=== PATIENT | female | born 1930 | race Hispanic/Latino ===

== ENCOUNTER 2018-11-24 17:00 | Outpatient (CLI) | payer MEDICARE, BC | END 2018-11-24 17:01 | disposition home or self-care (01) | LOC: RAD 17:00 ==

== ENCOUNTER 2018-12-06 15:18 | Inpatient (IN) | payer MEDICARE, BC ==
[2018-12-06 15:19] VITALS: BMI 31.8
[2018-12-06 15:52] LABS: HEMOGLOBIN 10.9 g/dL (12.0-16.0); MEAN CELL VOLUME 93.1 fl (80.0-105.0); MEAN CORPUSCULAR HEMOGLOBIN 30.2 pg (25.0-35.0); MEAN CORPUSCULAR HGB CONC 32.4 g/dl (31.0-37.0); MEAN PLATELET VOLUME 10.3 fl (7.0-11.0); RBC 3.61 {null, 10^6/uL} (3.5-6.1); RED CELL DISTRIBUTION WIDTH 14.2 % (11.5-14.5); WHITE BLOOD COUNT 7.3 {null, 10^3/uL} (4.5-11.0)
[2018-12-06 15:59] LABS: INR 1.35
[2018-12-06 16:04] LABS: ALB/GLOB RATIO 1.3 (1.1-1.8); ALBUMIN 3.8 g/dL (3.0-4.8); ALT/SGPT 16 U/L (7-56); AST/SGOT 19 U/L (14-36); BLOOD UREA NITROGEN 17 mg/dL (7-21); CALCIUM 8.8 mg/dL (8.4-10.5); GFR NON-AFRICAN AMERICAN > 60
--- NOTE | 2018-12-06 16:05 | ED PDOC ---
Arrival/HPI <Bolivar Souza - Last Filed: 12/06/18 20:16> - General Historian: Patient, Family - History of Present Illness Narrative History of Present Illness (Text): 12/06/18 16:23 88 y/o female with PMH of CVA, TIA, severe PVD, dementia presents to the ED from home accompanied by her son with diarrhea and dizziness for one day. Patient is a poor historian because her dementia and son is providing the history. He reports that the patient was in her usual state of health till today when she felt lightheadedness upon going for a walk. Patient reports diarrhea for one day and poor oral intake but drinks many cups of coffee daily. She denied urinary symptoms, nausea, vomiting, fever, chills, muscle weakness, chest pain, SOB, palpitations, cough. Patient is following up with her machine zipper trimmer for her advanced PVD and is on aspirin. PMD Dr Olmstead machine zipper trimmer: Dr Chahal Time/Duration: 4-6 hours Symptom Course: Resolved Context: Home <Unruly Sue - Last Filed: 12/07/18 13:09> - General Chief Complaint: Weakness/Neurological Deficit Time Seen by Provider: 12/06/18 15:39 Past Medical History - Provider Review Nursing Documentation Reviewed: Yes - Neurological HX Cerebrovascular Accident: Yes (Slurred speech) Hx Dementia: Yes - Psychiatric Hx Substance Use: No - Surgical History Hx Joint Replacement: Yes (Knee replacement) <Unruly Sue - Last Filed: 12/07/18 13:09> Family/Social History Family/Social History: No Known Family HX Smoking Status: Former Smoker Hx Alcohol Use: No Hx Substance Use: No <Unruly Sue - Last Filed: 12/07/18 13:09> Allergies/Home Meds <Bolivar Souza - Last Filed: 12/06/18 20:16> <Unruly Sue - Last Filed: 12/07/18 13:09> Allergies/Adverse Reactions: Allergies No Known Allergies Allergy (Verified 12/06/18 15:26) Home Medications: Home Meds Medication Instructions Recorded Confirmed No Known Home Med 12/06/18 12/06/18 Review of Systems - Physician Review All systems were reviewed & negative as marked: Yes - Review of Systems Constitutional: Normal Eyes: Normal ENT: Normal Respiratory: Normal. absent: SOB, Cough, Sputum Cardiovascular: Normal. absent: Chest Pain, Palpitations Gastrointestinal: Diarrhea. absent: Nausea, Vomiting, Appetite Changes, Hematochezia, Hematemesis Genitourinary Female: Normal. absent: Dysuria, Frequency, Hematuria Musculoskeletal: Normal Skin: Normal Neurological: Normal. absent: Headache, Dizziness Endocrine: Normal Hemo/Lymphatic: Normal Psychiatric: Normal <Unruly Sue - Last Filed: 12/07/18 13:09> Physical Exam Vital Signs Temp Pulse Resp BP Pulse Ox 12/06/18 18:40 100 F H 85 18 99 12/06/18 18:39 124/59 L 12/06/18 16:19 100.4 F H 83 18 110/59 L 96 <Bolivar Souza - Last Filed: 12/06/18 20:16> Vital Signs Reviewed: Yes Temperature: Febrile Blood Pressure: Normal Pulse: Regular Respiratory Rate: Normal Appearance: Positive for: Well-Appearing, Non-Toxic, Comfortable Pain Distress: None Mental Status: Positive for: Alert and Oriented X 3 - Systems Exam Head: Present: Atraumatic, Normocephalic Pupils: Present: PERRL Extroacular Muscles: Present: EOMI Conjunctiva: Present: Normal Mouth: Present: Dry Pharnyx: Present: Normal Nose (External): Present: Atraumatic Nose (Internal): Present: Normal Inspection Neck: Present: Normal Range of Motion. No: Meningeal Signs, JVD Respiratory/Chest: Present: Clear to Auscultation, Good Air Exchange. No: Respiratory Distress, Wheezes, Rhonchi Cardiovascular: Present: Regular Rate and Rhythm, Normal S1, S2 Abdomen: Present: Normal Bowel Sounds. No: Tenderness, Distention Back: Present: Normal Inspection. No: CVA Tenderness Upper Extremity: Present: Normal Inspection. No: Cyanosis, Edema Lower Extremity: Present: Normal ROM, Erythema, Other. No: CALF TENDERNESS, NORMAL PULSES Neurological: Present: GCS=15, CN II-XII Intact, Other (slurred speech (baseline)) Skin: Present: Warm, Dry, Other (b/l lower leg skin changes.) Psychiatric: Present: Alert, Oriented x 3 <Unruly Sue - Last Filed: 12/07/18 13:09> Medical Decision Making ED Course and Treatment: 03/02/19 20:16 patient was seen for acute diarrhea, incidentally found to have a fever. CT was done to rule out colitis in light of acute diarrhea. CXR is suggestive of a basilar pneumonia and was empirically started on doxy. Stools studies sent admit accepted by dr. chakraborty, covering for dr. gupta - Lab Interpretations Lab Results: pO2 34 mm/Hg (30-55) 12/06/18 17:50 VBG pH 7.41 (7.32-7.43) 12/06/18 17:50 VBG pCO2 45.0 (40-60) 12/06/18 17:50 VBG HCO3 28.5 mmol/l (21-28) H 12/06/18 17:50 VBG Total CO2 29.9 mmol.L (22-28) H 12/06/18 17:50 VBG O2 Sat (Calc) 72.0 % (40-65) H 12/06/18 17:50 VBG Base Excess 3.2 mmol/L (0.0-2.0) H 12/06/18 17:50 VBG Potassium 3.3 mmol/L (3.6-5.2) L 12/06/18 17:50 Sodium 140.0 mmol/L (132-148) 12/06/18 17:50 Chloride 108.0 mmol/L (98-107) H 12/06/18 17:50 Glucose 125 mg/dl (65-105) H 12/06/18 17:50 Lactate 1.0 mmol/L (0.7-2.1) 12/06/18 17:50 FiO2 21.0 % 12/06/18 17:50 PT 15.0 SECONDS (9.4-12.5) H 12/06/18 15:47 INR 1.35 12/06/18 15:47 Troponin I < 0.01 ng/mL 12/06/18 16:00 Total Bilirubin 0.7 mg/dL (0.2-1.3) 12/06/18 15:47 AST 19 U/L (14-36) 12/06/18 15:47 ALT 16 U/L (7-56) 12/06/18 15:47 Alkaline Phosphatase 61 U/L (38-126) 12/06/18 15:47 Total Protein 6.7 g/dL (5.8-8.3) 12/06/18 15:47 Albumin 3.8 g/dL (3.0-4.8) 12/06/18 15:47 Globulin 2.9 gm/dL 12/06/18 15:47 Albumin/Globulin Ratio 1.3 (1.1-1.8) 12/06/18 15:47 Urine Color Yellow (YELLOW) 12/06/18 16:51 Urine Appearance Clear (CLEAR) 12/06/18 16:51 Urine pH 5.5 (4.7-8.0) 12/06/18 16:51 Ur Specific Myra >= 1.030 (1.005-1.035) 12/06/18 16:51 Urine Protein Trace mg/dL (<30 mg/dL) H 12/06/18 16:51 Urine Glucose (UA) Negative mg/dL (NEGATIVE) 12/06/18 16:51 Urine Ketones Negative mg/dL (NEGATIVE) 12/06/18 16:51 Urine Blood Negative (NEGATIVE) 12/06/18 16:51 Urine Nitrate Negative (NEGATIVE) 12/06/18 16:51 Urine Bilirubin Negative (NEGATIVE) 12/06/18 16:51 Urine Urobilinogen 1.0 E.U./dL (<1 E.U./dL) H 12/06/18 16:51 Ur Leukocyte Esterase Negative Vishal/uL (NEGATIVE) 12/06/18 16:51 Urine RBC 0 - 2 /hpf (0-2) 12/06/18 16:51 Urine WBC None /hpf (0-6) 12/06/18 16:51 Ur Epithelial Cells None /hpf (0-5) 12/06/18 16:51 Urine Other Mucus /hpf 12/06/18 16:51 - RAD Interpretation Narrative RAD Interpretations (Text): EXAM: CT Abdomen and Pelvis with IV contrast Electronically signed on Dec 06, 2018 7:29:27 PM EST by: Taco Nuno M.D., IMPRESSION: Post operative changes with pneumobilia. No bowel obstruction identified. Small heterogeneous uterus. Advanced hypertrophic and degenerative changes lumbar spine with grade 1 anterolisthesis at the L4-L5 and L5-S1 levels. Advanced atherosclerotic changes Radiology Orders: 12/06/18 16:07 CHEST PORTABLE [RAD] Stat 12/06/18 16:14 ABDOMEN & PELVIS [ABD & PELVIS IV CONTRAST ONLY] [CT] Stat 12/06/18 19:24 CHEST PORTABLE [RAD] Stat Learning Support Specialist: Radiologist - Medication Orders Current Medication Orders: Sodium Chloride (Sodium Chloride 0.9%) 1,000 mls @ 100 mls/hr IV .Q10H [facility] Last Admin: 12/06/18 16:49 Dose: 100 mls/hr eMAR Start Stop Document 12/06/18 16:49 GMI (Rec: 12/06/18 16:[address] [facility] [id number]) Intravenous Solution Start Date 12/06/18 Start Time 16:49 Discontinued Medications Potassium Chloride (Potassium Chloride Oral Soln) 40 meq PO STAT STA Stop: 12/06/18 17:43 Last Admin: 12/06/18 18:02 Dose: 40 meq <Bolivar Souza - Last Filed: 12/06/18 20:16> - Lab Interpretations Lab Results: PT 15.0 SECONDS (9.4-12.5) H 12/06/18 15:47 INR 1.35 12/06/18 15:47 I have reviewed the lab results: Yes Interpretation: Abnormal lab values (K 3.2, KCL 40 PO given) - EKG Interpretation Interpreted by ED Physician: Yes (sinus rhythm @79 bpm with PVC ) Comparison: No previous EKG avail. <Unruly Sue - Last Filed: 12/07/18 13:09> Disposition/Present on Arrival - Present on Arrival Any Indicators Present on Arrival: No History of DVT/PE: Yes - Disposition Have Diagnosis and Disposition been Completed?: Yes Disposition Time: 20:16 Patient Plan: Admission <Bolivar Souza - Last Filed: 12/06/18 20:16> - Present on Arrival Any Indicators Present on Arrival: No History of DVT/PE: Yes History of Uncontrolled Diabetes: No Urinary Catheter: No History of Decub. Ulcer: No History Surgical Site Infection Following: None - Disposition Have Diagnosis and Disposition been Completed?: Yes Patient Plan: Admission <Unruly Sue - Last Filed: 12/07/18 13:09> - Disposition Diagnosis: Diarrhea Disposition: HOSPITALIZED Patient Problems: Current Active Problems Problem Status Onset Diarrhea Acute Condition: STABLE
[2018-12-06] MEDS ORDERED: Iohexol 350 MG/100 ML VIAL ONE (16:43)
[2018-12-06] MEDS: Sodium Chloride 0.9% 1,000 ML IV SCH (16:49)
[2018-12-06 16:54] LABS: TROPONIN I < 0.01 ng/mL
[2018-12-06 16:55] LABS: PH,URINE 5.5 (4.7-8.0); URINE BILIRUBIN NEGATIVE (NEGATIVE); URINE BLOOD NEGATIVE (NEGATIVE); URINE GLUCOSE (UA) NEGATIVE (NEGATIVE); URINE LEUKOCYTE ESTERASE NEGATIVE Leu/uL (NEGATIVE); URINE PROTEIN TRACE mg/dL (<30 mg/dL)
[2018-12-06 16:56] LABS: URINE APPEARANCE CLEAR (CLEAR); URINE COLOR YELLOW (YELLOW)
[2018-12-06 17:03] LABS: URINE RBC 0 - 2 /hpf (0-2)
[2018-12-06] MEDS ORDERED: Potassium Chloride 40 mEq/30 ml LIQ UD PO STA (17:42)
--- NOTE | 2018-12-06 17:42 | RAD ---
HISTORY: h/o heart disease COMPARISON: None available. TECHNIQUE: Chest, one view. FINDINGS: Examination limited by habitus. LUNGS: Mild left basilar atelectasis/infiltrate. Please note that chest x-ray has limited sensitivity for the detection of pulmonary masses. PLEURA: No significant pleural effusion identified. No definite pneumothorax . CARDIOVASCULAR: Cardiomegaly. Atherosclerotic calcifications of the aorta. OSSEOUS STRUCTURES: Degenerative changes. VISUALIZED UPPER ABDOMEN: Elevation of the right hemidiaphragm. OTHER FINDINGS: None. IMPRESSION: Cardiomegaly. Mild left basilar atelectasis/infiltrate.
[2018-12-06 18:02] LABS: VENOUS BLOOD GAS BASE EXCESS 3.2 mmol/L (0.0-2.0); VENOUS BLOOD GAS PO2 34 mm/Hg (30-55); VENOUS BLOOD PH 7.41 (7.32-7.43)
[2018-12-07] MEDS: Sodium Chloride 0.9% 1,000 ML IV SCH (04:20)
--- NOTE | 2018-12-07 15:28 | CT ---
Date of service: 12/07/2018 PROCEDURE: CT HEAD WITHOUT CONTRAST. HISTORY: altered mental status COMPARISON: None available. TECHNIQUE: Axial computed tomography images were obtained through the head/brain without intravenous contrast. Radiation dose: Total exam DLP = 801.78 mGy-cm. This CT exam was performed using one or more of the following dose reduction techniques: Automated exposure control, adjustment of the mA and/or kV according to patient size, and/or use of iterative reconstruction technique. FINDINGS: HEMORRHAGE: No intracranial hemorrhage. BRAIN: Diffuse atrophy with prominence of the ventricles and sulci noted. No mass effect or edema. Intracranial atherosclerosis. Scattered periventricular and subcortical white matter hypodensities, which are nonspecific, but often seen with chronic microvascular ischemic disease. Please note that MRI with diffusion imaging is more sensitive in the detection of acute ischemic event. VENTRICLES: No hydrocephalus. CALVARIUM: Unremarkable. PARANASAL SINUSES: Unremarkable as visualized. No significant inflammatory changes. MASTOID AIR CELLS: Unremarkable as visualized. No inflammatory changes. OTHER FINDINGS: None. IMPRESSION: Generalized atrophy. Nonspecific white matter changes.
--- NOTE | 2018-12-07 15:45 | CT ---
Date of service: 12/06/2018 PROCEDURE: CT Abdomen and Pelvis with contrast HISTORY: diarrhea COMPARISON: None available. TECHNIQUE: Contrast dose: 100 mL Omnipaque 350 IV Radiation dose: Total exam DLP = 864.73 mGy-cm. This CT exam was performed using one or more of the following dose reduction techniques: Automated exposure control, adjustment of the mA and/or kV according to patient size, and/or use of iterative reconstruction technique. FINDINGS: LOWER THORAX: Bibasilar atelectasis/infiltrates. No visible pleural effusion or pneumothorax. LIVER: Pneumobilia. GALLBLADDER AND BILE DUCTS: Cholecystectomy. PANCREAS: Fatty atrophy of the pancreas. SPLEEN: Unremarkable. ADRENALS: Bilateral adrenal gland hypertrophy. KIDNEYS AND URETERS: The kidneys enhance symmetrically. No hydronephrosis or obstructing calculus identified. VASCULATURE: No aortic aneurysm. Atherosclerotic calcifications of the aorta. BOWEL: Stomach is nondistended. Lack of oral contrast limits evaluation for bowel pathology. Bowel loops appear within normal limits of caliber without evidence of obstruction. APPENDIX: The appendix appears within normal limits of caliber. No secondary signs of acute appendicitis. PERITONEUM: No significant free fluid. No definite free air. LYMPH NODES: No bulky adenopathy identified. BLADDER: Unremarkable. REPRODUCTIVE: Heterogeneous uterus with coarse calcifications consistent with fibroids. BONES: Multilevel degenerative changes of the spine including vacuum disc phenomenon and grade 1 anterolisthesis of L4 on L5 and L5 on S1. OTHER FINDINGS: Catheter noted inferior to the urinary bladder, a does not enter the urinary bladder; correlate clinically. IMPRESSION: Catheter noted inferior to the urinary bladder but does not enter the bladder; correlate clinically. Heterogeneous uterus with coarse calcifications consistent with degenerating fibroids. Bilateral adrenal gland hypertrophy. Pneumobilia in the setting of cholecystectomy. Fatty atrophy the pancreas. Bibasilar atelectasis/infiltrates. Preliminary impression was provided by [employer]. Case discussed with the patient's RN Clara on 12/07/18 at 3:40 p.m.
--- NOTE | 2018-12-07 16:38 | CARD ---
APPROVED REPORT Date of service: 12/06/2018 EKG Measurement Heart [id number] <Conclusion> Sinus rhythm with 1st degree AV block with premature supraventricular complexes Left bundle branch block Abnormal ECG
[2018-12-07 17:31] LABS: HDL CHOLESTEROL 40 mg/dL (29-60)
[2018-12-07 17:42] LABS: LDL CHOLESTEROL 81 mg/dL (0-129)
--- NOTE | 2018-12-07 19:24 | CON ---
DATE OF CONSULTATION: 12/07/2018 REQUESTING PHYSICIAN: Anne-Marie Faria MD REASON FOR CONSULTATION: Abnormal electrocardiogram. HISTORY: This is an 88-year-old woman with a history of cerebrovascular disease, peripheral vascular disease and dementia, who was brought to the emergency room by her son with complaints of dizziness and diarrhea. She was noted to have a left bundle-branch block on electrocardiogram and evaluation was requested. She is seen lying in bed on telemetry. She answers questions in an unintelligible fashion. She cannot provide the further history. The rest of the history is obtained via the chart. PAST HISTORY: Notable for prior cerebrovascular accident with dysphasia, dementia and prior knee replacement. FAMILY HISTORY: Both parents , cause unknown. SOCIAL HISTORY: She is a former smoker. She does not drink. She lives at home with her family. MEDICATIONS AT HOME: None. ALLERGIES: NONE. REVIEW OF SYSTEMS: A 10-point review of systems was basically unobtainable. PHYSICAL EXAMINATION: GENERAL: She is a very elderly woman who is comfortable at rest. VITAL SIGNS: Blood pressure is 150/76 with a pulse of 70, in sinus rhythm. Respirations are 16. She is afebrile. HEENT: No JVD. CHEST: Few scattered rhonchi heard. HEART: PMI displaced laterally with a systolic murmur present at the left sternal border and a paradoxical splitting of the second sound. ABDOMEN: Soft, nontender, normoactive bowel sounds. EXTREMITIES: No edema. SKIN: Warm and dry. PSYCHIATRIC: Unable to fully assess. NEUROLOGIC: Not oriented to person, place or time. Moving all four extremities. DIAGNOSTIC DATA: White count 7.3, hemoglobin and hematocrit 10.9 and 33.6 with a platelet count of 176,000. PT/INR 15 and 1.35. Venous blood gas: pH 7.41, pCO2 of 45, pO2 of 34. Potassium 3.2, which has been replaced. BUN and creatinine are 17 and 0.7. Troponin is not detected. Electrocardiogram reveals wandering baseline with sinus rhythm, first-degree AV block and left bundle-branch block pattern. Chest x-ray reveals an increased cardiac silhouette. Atelectasis is noted on the left. CT of the abdomen and pelvis was relatively unremarkable. IMPRESSION: 1. Left bundle-branch block, unclear if this is old or new, appears asymptomatic. No clear evidence of cardiac ischemia at this time. 2. Significant dementia. 3. Diarrhea and weakness, likely due to some degree of intravascular volume depletion. 4. Hypokalemia. 5. Rest of the problems as noted. RECOMMENDATIONS: Conservative management is advised. No further cardiac enzymes need to be drawn at this time. Potassium placement should be provided. Cautious IV hydration can continue for now. I would be happy to follow along as needed. However, a very conservative management appears most reasonable at this time. Thank you for this consultation. Wallace Goncalves MD
[2018-12-07] MEDS ORDERED: guaiFENesin DM 100 mg-10 mg/5 ml UD PO PRN (19:30)
[2018-12-08] MEDS ORDERED: Potassium Chloride 40 mEq/30 ml LIQ UD PO STA (08:25)
--- NOTE | 2018-12-08 08:54 | HP ---
DATE OF EXAM: 12/07/2018 HISTORY OF PRESENT ILLNESS: The patient is 88-year-old, patient of Dr. Olmstead, was brought to emergency room. Patient is not a very good historian. I took history from her daughter Vashti Rhoades. She states patient, her mom, lives with son and yesterday, when the son took her out to have a little walk, when as soon as she reached the front door, she wanted to come back and she laid down on the bed and then she felt very frustrated and she was having difficulty expressing herself and she felt very anxious and frustrated because she could not express herself, but she wanted to say and she seemed very agitated and her behavior was not herself, so family decided to bring her to emergency room to get further help. According to the daughter, she had episode of diarrhea yesterday also, denies taking any recent antibiotic for any other reason. She felt dizzy and lightheaded. Recently, she has not been eating that well according to daughter, if she drinks one cup of coffee, she states this is enough and she has been told multiple times that drinking too much coffee might give her dehydration, but according to daughter, mom seemed to be very stubborn and she wants to do whatever she wants to do. So for those reasons, they brought her to emergency room for further evaluation. She was recently evaluated by Dr. Scottie Lim for her peripheral vascular disease and it was advised to have some intervention done, but Dr. uClver told her not to do, which is given her age and worsening dementia. PAST MEDICAL HISTORY: Otherwise significant for: 1. Hypertension. 2. Hyperlipidemia. 3. Peripheral vascular disease. 4. Dementia. ALLERGIC: SHE IS NOT ALLERGIC TO ANY MEDICATION. MEDICATION AT HOME: She take statins. SOCIAL HISTORY: She used to be a smoker in the past, but quit couple of years ago. PHYSICAL EXAMINATION GENERAL: She is awake and alert, but agitated and she cannot express herself. She gets stuck on certain words and keep on repeating that. Otherwise, she has symmetrical face, nonicteric sclerae, pink conjunctivae. VITAL SIGNS: She is afebrile, pulse 63, respirations 20, blood pressure 159/76. LUNGS: Bilateral fair airflow. No rhonchi or crackle. HEART: S1, S2 audible. ABDOMEN: Soft, nontender, no rebound, no guarding. NEUROLOGIC: Patient is awake and alert, but confused and disoriented. LABORATORY EXAMINATION: WBC 7.3, hemoglobin 10.9, hematocrit 33.6, platelet 176. PT 15, INR 1.02. Chemistry, sodium 140, potassium 3.2, chloride 108, CO2 of 26, BUN 17, creatine 0.7, blood sugar 137, magnesium 2.4. Urinalysis is unremarkable. CT scan of the head is done that shows generalized atrophy and nonspecific white matter changes. CT of the abdomen and pelvis was done that shows heterogeneous uterus with gross calcification, bibasilar atelectasis and fatty atrophy of pancreas. ASSESSMENT : 1. Altered mental status. 2. Worsening dementia. 3. Expressive dysphasia. 4. History of hypertension. 5. Peripheral vascular disease. PLAN: Currently, the patient is on statin. Potassium will be supplemented. I will order for carotid Doppler. CT scan has been ordered and it seemed to be unremarkable. Stool for C. diff is pending. I will request physical therapy evaluation. Neurology and Cardiology evaluations are pending. Anne-Marie Faria MD
[2018-12-08 11:40] LABS: BASO # 0.01 {null, K/mm3} (0.0-2.0); BASO % 0.2 % (0.0-3.0); EOS # 0.1 (0.0-0.7); EOS % 1.6 % (1.5-5.0); HEMOGLOBIN 12.6 g/dL (12.0-16.0); LYMPH # 1.7 (1.2-3.4); LYMPH % 25.9 % (22.0-35.0); MEAN CELL VOLUME 93.1 fl (80.0-105.0); MEAN CORPUSCULAR HGB CONC 32.2 g/dl (31.0-37.0); MEAN PLATELET VOLUME 10.3 fl (7.0-11.0); MONO # 0.6 (0.1-0.6); MONO % 9.9 % (1.0-6.0); RBC 4.2 {null, 10^6/uL} (3.5-6.1); RED CELL DISTRIBUTION WIDTH 14.4 % (11.5-14.5); WHITE BLOOD COUNT 6.4 {null, 10^3/uL} (4.5-11.0)
[2018-12-08 12:06] LABS: FREE T4 0.95 ng/dL (0.78-2.19)
[2018-12-08 12:07] LABS: ALB/GLOB RATIO 1.2 (1.1-1.8); ALBUMIN 4.3 g/dL (3.0-4.8); ALT/SGPT 16 U/L (7-56); AST/SGOT 18 U/L (14-36); BLOOD UREA NITROGEN 15 mg/dL (7-21); CALCIUM 9.3 mg/dL (8.4-10.5); GFR NON-AFRICAN AMERICAN > 60
--- NOTE | 2018-12-08 13:23 | CP.PCM.HP ---
<Feliciano Engle - Last Filed: 12/08/18 13:18> History of Present Illness - History of Present Illness History of Present Illness: H&P for Dr Kemp: 88-year-old female with past medical history of CVA, TIA, severe PVD, dementia presents following her being dizzy, and episode of being unresponsive. As per the patient's daughter Tracy, the patient has been increasingly lethargic past week. Then prior to arrival patient had an episode of being very dizzy and the patient went to bed. Her son came to wake her up and she was unresponsive at the time. They became concerned and called 911 and brought the patient to the emergency room. In route to the emergency room patient did have one episode of diarrhea. The patient does admit to poor appetite. She denies any other complaints. 12 point ROS limited due to dementia PMH: As above PSH: Cholecystectomy, bilateral knee replacement, ankle surgery, , varicose vein removal Allergies: No known allergies Medications: Denies SH: Denies any smoking, drinking, or drugs FH: Denies Present on Admission - Present on Admission Any Indicators Present on Admission: No Review of Systems - Review of Systems All systems: reviewed and no additional remarkable complaints except Past Patient History - Past Social History Smoking Status: Former Smoker - NEUROLOGICAL HX Cerebrovascular Accident: Yes (expressive aphasia) - MUSCULOSKELETAL/RHEUMATOLOGICAL Hx Falls: No - PSYCHIATRIC Hx Substance Use: No - SURGICAL HISTORY Hx Joint Replacement: Yes (Knee replacement) Meds Allergies/Adverse Reactions: Allergies Allergy/AdvReac Type Severity Reaction Status Date / Time No Known Allergies Allergy Verified 12/06/18 15:26 Physical Exam - Constitutional Appears: No Acute Distress - Head Exam Head Exam: ATRAUMATIC, NORMOCEPHALIC - Eye Exam Eye Exam: EOMI - ENT Exam ENT Exam: Mucous Membranes Moist - Respiratory Exam Respiratory Exam: Clear to Auscultation Bilateral. absent: Rales, Rhonchi - Cardiovascular Exam Cardiovascular Exam: REGULAR RHYTHM, RRR, +S1, +S2 - GI/Abdominal Exam GI & Abdominal Exam: Normal Bowel Sounds, Soft. absent: Tenderness - Extremities Exam Extremities exam: Negative for: calf tenderness, pedal edema - Neurological Exam Neurological exam: Alert, CN II-XII Intact, Oriented x3 - Psychiatric Exam Psychiatric exam: Normal Mood - Skin Skin Exam: Dry, Intact, Warm Results - Vital Signs Recent Vital Signs: Last Vital Signs Temp 98.1 F 12/08/18 08:53 Pulse 63 12/08/18 10:00 Resp 20 12/08/18 08:53 BP 117/63 12/08/18 08:53 Pulse Ox 95 12/08/18 08:53 - Labs Result Diagrams: 12/08/18 11:30 12/08/18 11:30 Labs: Laboratory Results - last 24 hr 12/07/18 12/08/18 12/08/18 17:21 11:30 11:30 WBC 6.4 RBC 4.20 Hgb 12.6 Hct 39.1 MCV 93.1 MCH 30.0 MCHC 32.2 RDW 14.4 Plt Count 215 MPV 10.3 Neut % (Auto) 62.4 Lymph % (Auto) 25.9 Mcintosh % (Auto) 9.9 H Eos % (Auto) 1.6 Baso % (Auto) 0.2 Lymph # (Auto) 1.7 Mcintosh # (Auto) 0.6 Eos # (Auto) 0.1 Baso # (Auto) 0.01 Absolute Neuts (auto) 3.97 Sodium 141 Potassium 4.2 Chloride 106 Carbon Dioxide 28 Anion Gap 11 BUN 15 Creatinine 0.6 L Est GFR ( Amer) > 60 Est GFR (Non-Af Amer) > 60 Random Glucose 90 Calcium 9.3 Magnesium 2.4 H Total Bilirubin 0.6 AST 18 ALT 16 Alkaline Phosphatase 66 Total Protein 7.7 Albumin 4.3 Globulin 3.4 Albumin/Globulin Ratio 1.2 Triglycerides 108 Cholesterol 148 LDL Cholesterol Direct 81 HDL Cholesterol 40 Free T4 TSH 3rd Generation 12/08/18 11:30 WBC RBC Hgb Hct MCV MCH MCHC RDW Plt Count MPV Neut % (Auto) Lymph % (Auto) Mcintosh % (Auto) Eos % (Auto) Baso % (Auto) Lymph # (Auto) Mcintosh # (Auto) Eos # (Auto) Baso # (Auto) Absolute Neuts (auto) Sodium Potassium Chloride Carbon Dioxide Anion Gap BUN Creatinine Est GFR ( Amer) Est GFR (Non-Af Amer) Random Glucose Calcium Magnesium Total Bilirubin AST ALT Alkaline Phosphatase Total Protein Albumin Globulin Albumin/Globulin Ratio Triglycerides Cholesterol LDL Cholesterol Direct HDL Cholesterol Free T4 0.95 TSH 3rd Generation 3.73 Assessment & Plan - Assessment and Plan (Free Text) Assessment: 1. Acute diarrhea 2. Hypokalemia 3.2 3. LBBB, likely chronic 4. History of CVA 5. Peripheral vascular disease 6. Dementia, likely Alzheimer's 7. Dizziness, acute Patient's diarrhea has mostly resolved at this time. C. difficile workup has been negative. Follow-up stool workup. For her LBBB cardiology has been consulted and recommended conservative management. For her hypokalemia has been repleted with potassium chloride 40 meq PO x1. For her dizziness and history of dementia neurology was consulted awaiting recommendations. For her history of CVA we will start the patient on aspirin daily. F/u Carotid US. F/u orthostati cs. For her hyperlipidemia continue with Lipitor. CT of the head was neg for any acute abnormality. CT of the abdomen showed urinary catheter likely in the inferior section of the bladderI reached out to the nurse to push the catheter and and make sure that it is functioning properly. I spoke to the patient's daughter Tracy in detail updated her on the current management. Cont with heart healthy diet. Continue with physical therapy. Continue to monitor for any changes. Case and plan was reviewed and discussed with Dr. Kemp. <Ravin Kemp S - Last Filed: 12/08/18 17:12> Results - Vital Signs Recent Vital Signs: Last Vital Signs Temp 98.1 F 12/08/18 08:53 Pulse 63 12/08/18 10:00 Resp 20 12/08/18 08:53 BP 117/63 12/08/18 08:53 Pulse Ox 95 12/08/18 08:53 - Labs Result Diagrams: 12/08/18 11:30 12/08/18 11:30 Labs: Laboratory Results - last 24 hr 12/07/18 12/08/18 12/08/18 17:21 11:30 11:30 WBC 6.4 RBC 4.20 Hgb 12.6 Hct 39.1 MCV 93.1 MCH 30.0 MCHC 32.2 RDW 14.4 Plt Count 215 MPV 10.3 Neut % (Auto) 62.4 Lymph % (Auto) 25.9 Mcintosh % (Auto) 9.9 H Eos % (Auto) 1.6 Baso % (Auto) 0.2 Lymph # (Auto) 1.7 Mcintosh # (Auto) 0.6 Eos # (Auto) 0.1 Baso # (Auto) 0.01 Absolute Neuts (auto) 3.97 Sodium 141 Potassium 4.2 Chloride 106 Carbon Dioxide 28 Anion Gap 11 BUN 15 Creatinine 0.6 L Est GFR ( Amer) > 60 Est GFR (Non-Af Amer) > 60 Random Glucose 90 Hemoglobin A1c Calcium 9.3 Magnesium 2.4 H Total Bilirubin 0.6 AST 18 ALT 16 Alkaline Phosphatase 66 Total Protein 7.7 Albumin 4.3 Globulin 3.4 Albumin/Globulin Ratio 1.2 Triglycerides 108 Cholesterol 148 LDL Cholesterol Direct 81 HDL Cholesterol 40 Free T4 TSH 3rd Generation 12/08/18 12/08/18 11:30 11:30 WBC RBC Hgb Hct MCV MCH MCHC RDW Plt Count MPV Neut % (Auto) Lymph % (Auto) Mcintosh % (Auto) Eos % (Auto) Baso % (Auto) Lymph # (Auto) Mcintosh # (Auto) Eos # (Auto) Baso # (Auto) Absolute Neuts (auto) Sodium Potassium Chloride Carbon Dioxide Anion Gap BUN Creatinine Est GFR ( Amer) Est GFR (Non-Af Amer) Random Glucose Hemoglobin A1c 5.6 Calcium Magnesium Total Bilirubin AST ALT Alkaline Phosphatase Total Protein Albumin Globulin Albumin/Globulin Ratio Triglycerides Cholesterol LDL Cholesterol Direct HDL Cholesterol Free T4 0.95 TSH 3rd Generation 3.73 Assessment & Plan - Assessment and Plan (Free Text) Assessment: Pt seen and examined by me. I have reviewed the note of the medical coding specialist and I agree with it. I have discussed the assessment and plan with the resident. I have reviewed the medications and the last labs.
--- NOTE | 2018-12-08 13:37 | CP.PCM.PCO ---
Physician Communication Note - Physician Communication Note Physician Communication Note: carotid results possible D/C 12/09/18
--- NOTE | 2018-12-08 18:27 | US ---
PROCEDURE: Bilateral carotid artery duplex ultrasound HISTORY: Carotid stenosis syncope PHYSICIAN(S): Scottie Lim MD. TECHNIQUE: Duplex sonography and color-flow Doppler were used to evaluate the carotid bifurcations and limited segments of the vertebral arteries bilaterally. FINDINGS: There is mild to moderate smooth heterogeneous plaque noted at the carotid bifurcations bilaterally. The exam is somewhat limited by tortuous vessels. The peak systolic velocity in the proximal right internal carotid artery is 106 cm/sec. This corresponds to a 40-59 percent proximal right ICA stenosis. Mildly elevated systolic velocities are noted in the proximal right external carotid artery. There is antegrade flow in the right vertebral artery. The peak systolic velocity in the proximal left internal carotid artery is 120 cm/sec. This corresponds to a 40-59 percent proximal left ICA stenosis. Normal systolic velocities are noted in the proximal left external carotid artery. There is antegrade flow in the left vertebral artery. IMPRESSION: 1. Bilateral 40-59 percent proximal ICA stenoses. 2. Antegrade flow in both vertebral arteries.
[2018-12-08 18:58] VITALS: O2SAT 96
--- NOTE | 2018-12-08 20:21 | CON ---
DATE: 12/08/2018 HISTORY OF PRESENT ILLNESS: This is an 88-year-old female with a past medical history of CVA and TIA, severe peripheral vascular disease, and also dementia, and came here being dizzy and had episode of unresponsiveness. The patient was lethargic last week. The patient had an episode of dizziness. The patient was brought here to the hospital and did have one episode of diarrhea and a poor appetite. PAST MEDICAL HISTORY: TIA, peripheral vascular disease, and dementia. PAST SURGICAL HISTORY: Status post cholecystectomy, bilateral knee replacement, , and varicose vein removal. ALLERGY: NO KNOWN DRUG ALLERGY. SOCIAL HISTORY: Does not smoke; does not drink. PHYSICAL EXAMINATION: HEENT: Normocephalic and atraumatic. NECK: Supple. NEUROLOGIC: Alert, awake, and oriented x3. No aphasia. Cranial nerves II through XII are tested. Pupil reactive. EOM intact. Visual field full. No facial asymmetry. Tongue midline. MOTOR: Moves all the extremities equally. Tone normal. Deep tendon reflexes 1+. Both plantars downgoing. Sensory appears intact. Cerebellar gait deferred. IMPRESSION AND PLAN: Peripheral vascular disease, dementia, dizziness, also had left bundle-branch block, and acute diarrhea. Workup in progress. Continue present management. We will follow up. CAT scan of the head was done which was reported negative. I spoke about the findings to the patient. Cristo Tobar MD
--- NOTE | 2018-12-08 20:24 | PN ---
DATE: 12/08/2018 SUBJECTIVE: The patient was seen and examined. I do agree with the note of the pediatrician/medical doctor. The patient was brought in by the family because of diarrhea and dizziness. She had a CAT scan of her abdomen. It showed that there was a catheter that was inferior to the urinary bladder. The patient had bilateral adrenal gland hypertrophy and fatty atrophy in the pancreas. She had a CT of the head done that showed generalized atrophy. The patient had a chest x-ray done that showed cardiomegaly. She was seen by physical therapy and it was felt that she can go home with the services. She currently is on Lipitor for dyslipidemia. She received potassium because of hypokalemia. She has a carotid Dopplers that have been ordered. The patient's diarrhea has improved. Hypokalemia has improved as well. She most likely has dementia, most likely Alzheimer's type. The patient's daughter was updated on the patient's current diagnosis and plan of care. The patient may have had a gastroenteritis that has improved. Ravin Kemp MD
[2018-12-09 08:35] VITALS: TEMP 97.9
[2018-12-09 10:53] LABS: BASO # 0.01 {null, K/mm3} (0.0-2.0); BASO % 0.2 % (0.0-3.0); EOS # 0.1 (0.0-0.7); EOS % 1.7 % (1.5-5.0); HEMOGLOBIN 10.7 g/dL (12.0-16.0); LYMPH # 1.3 (1.2-3.4); LYMPH % 27.7 % (22.0-35.0); MEAN CELL VOLUME 91.9 fl (80.0-105.0); MEAN CORPUSCULAR HEMOGLOBIN 30.1 pg (25.0-35.0); MEAN CORPUSCULAR HGB CONC 32.7 g/dl (31.0-37.0); MEAN PLATELET VOLUME 9.8 fl (7.0-11.0); MONO # 0.5 (0.1-0.6); MONO % 9.4 % (1.0-6.0); RBC 3.56 {null, 10^6/uL} (3.5-6.1); WHITE BLOOD COUNT 4.8 {null, 10^3/uL} (4.5-11.0)
[2018-12-09 11:15] LABS: ALB/GLOB RATIO 1.2 (1.1-1.8); ALBUMIN 3.4 g/dL (3.0-4.8); ALT/SGPT 18 U/L (7-56); AST/SGOT 19 U/L (14-36); BLOOD UREA NITROGEN 14 mg/dL (7-21); CALCIUM 8.5 mg/dL (8.4-10.5); GFR NON-AFRICAN AMERICAN > 60
--- NOTE | 2018-12-09 12:19 | CP.PCM.DIS ---
<Feliciano Engle - Last Filed: 12/09/18 12:38> Provider - Provider Date of Admission: 12/06/18 20:14 Attending physician: Ravin Kemp MD Consults: 12/06/18 20:21 Cardiology Consult Routine Comment: Consulting Provider: Wallace Goncalves Consulting Physician: Wallace Goncalves Reason for Consult: incidental ekg with left bundle branch block 12/07/18 02:17 Social Work Referral Routine Comment: Patient has dementia lives alone Physician Instructions: Reason For Exam: Lives alone 12/07/18 14:32 Consult [Physician Consult] Routine Comment: Consulting Provider: Montez Tobar Consulting Physician: Montez Tobar Reason for Consult: altered mental status 12/07/18 14:36 Stroke Center Referral Routine Comment: Physician Instructions: Reason For Exam: PT with possible brain bleed 12/08/18 13:56 TCU [Evaluation for TRCU] Routine Comment: Physician Instructions: Reason For Exam: deconditioned Time Spent in preparation of Discharge (in minutes): 45 Hospital Course - Lab Results Lab Results: Micro Results 12/06/18 22:00 Blood-Venous Blood Culture - Preliminary NO GROWTH AFTER 48 HOURS 12/06/18 19:59 Blood-Venous Blood Culture - Preliminary NO GROWTH AFTER 48 HOURS 12/06/18 16:00 Stool C. difficile Antigen & Toxins A,B - Final Most Recent Lab Values WBC 4.8 10^3/uL (4.5-11.0) D 12/09/18 10:40 RBC 3.56 10^6/uL (3.5-6.1) 12/09/18 10:40 Hgb 10.7 g/dL (12.0-16.0) L 12/09/18 10:40 Hct 32.7 % (36.0-48.0) L 12/09/18 10:40 MCV 91.9 fl (80.0-105.0) 12/09/18 10:40 MCH 30.1 pg (25.0-35.0) 12/09/18 10:40 MCHC 32.7 g/dl (31.0-37.0) 12/09/18 10:40 RDW 14.0 % (11.5-14.5) 12/09/18 10:40 Plt Count 193 10^3/uL (120.0-450.0) 12/09/18 10:40 MPV 9.8 fl (7.0-11.0) 12/09/18 10:40 Neut % (Auto) 61.0 % (50.0-68.0) 12/09/18 10:40 Lymph % (Auto) 27.7 % (22.0-35.0) 12/09/18 10:40 Redwood % (Auto) 9.4 % (1.0-6.0) H 12/09/18 10:40 Eos % (Auto) 1.7 % (1.5-5.0) 12/09/18 10:40 Baso % (Auto) 0.2 % (0.0-3.0) 12/09/18 10:40 Lymph # (Auto) 1.3 (1.2-3.4) 12/09/18 10:40 Redwood # (Auto) 0.5 (0.1-0.6) 12/09/18 10:40 Eos # (Auto) 0.1 (0.0-0.7) 12/09/18 10:40 Baso # (Auto) 0.01 K/mm3 (0.0-2.0) 12/09/18 10:40 Absolute Neuts (auto) 2.91 (1.4-6.5) 12/09/18 10:40 PT 15.0 SECONDS (9.4-12.5) H 12/06/18 15:47 INR 1.35 12/06/18 15:47 pO2 34 mm/Hg (30-55) 12/06/18 17:50 VBG pH 7.41 (7.32-7.43) 12/06/18 17:50 VBG pCO2 45.0 (40-60) 12/06/18 17:50 VBG HCO3 28.5 mmol/l (21-28) H 12/06/18 17:50 VBG Total CO2 29.9 mmol.L (22-28) H 12/06/18 17:50 VBG O2 Sat (Calc) 72.0 % (40-65) H 12/06/18 17:50 VBG Base Excess 3.2 mmol/L (0.0-2.0) H 12/06/18 17:50 VBG Potassium 3.3 mmol/L (3.6-5.2) L 12/06/18 17:50 Sodium 140.0 mmol/L (132-148) 12/06/18 17:50 Chloride 108.0 mmol/L (98-107) H 12/06/18 17:50 Glucose 125 mg/dl (65-105) H 12/06/18 17:50 Lactate 1.0 mmol/L (0.7-2.1) 12/06/18 17:50 FiO2 21.0 % 12/06/18 17:50 Sodium 137 mmol/L (132-148) 12/09/18 10:40 Potassium 4.0 mmol/L (3.6-5.0) 12/09/18 10:40 Chloride 105 mmol/L (98-107) 12/09/18 10:40 Carbon Dioxide 26 mmol/L (21-33) 12/09/18 10:40 Anion Gap 9 (10-20) L 12/09/18 10:40 BUN 14 mg/dL (7-21) 12/09/18 10:40 Creatinine 0.5 mg/dl (0.7-1.2) L 12/09/18 10:40 Est GFR ( Amer) > 60 12/09/18 10:40 Est GFR (Non-Af Amer) > 60 12/09/18 10:40 Random Glucose 143 mg/dL (70-110) H 12/09/18 10:40 Hemoglobin A1c 5.6 % (4.2-6.5) 12/08/18 11:30 Calcium 8.5 mg/dL (8.4-10.5) 12/09/18 10:40 Phosphorus 3.8 mg/dL (2.5-4.5) 12/09/18 10:40 Magnesium 2.2 mg/dL (1.7-2.2) 12/09/18 10:40 Total Bilirubin 0.5 mg/dL (0.2-1.3) 12/09/18 10:40 AST 19 U/L (14-36) 12/09/18 10:40 ALT 18 U/L (7-56) 12/09/18 10:40 Alkaline Phosphatase 52 U/L (38-126) 12/09/18 10:40 Troponin I < 0.01 ng/mL 12/06/18 16:00 Total Protein 6.3 g/dL (5.8-8.3) 12/09/18 10:40 Albumin 3.4 g/dL (3.0-4.8) 12/09/18 10:40 Globulin 2.9 gm/dL 12/09/18 10:40 Albumin/Globulin Ratio 1.2 (1.1-1.8) 12/09/18 10:40 Triglycerides 108 mg/dL (35-160) 12/07/18 17:21 Cholesterol 148 mg/dL (130-200) 12/07/18 17:21 LDL Cholesterol Direct 81 mg/dL (0-129) 12/07/18 17:21 HDL Cholesterol 40 mg/dL (29-60) 12/07/18 17:21 Free T4 0.95 ng/dL (0.78-2.19) 12/08/18 11:30 TSH 3rd Generation 3.73 mIU/mL (0.46-4.68) 12/08/18 11:30 Venous Blood Potassium 3.3 mmol/L (3.6-5.2) L 12/06/18 17:50 Urine Color Yellow (YELLOW) 12/06/18 16:51 Urine Appearance Clear (CLEAR) 12/06/18 16:51 Urine pH 5.5 (4.7-8.0) 12/06/18 16:51 Ur Specific Fountain >= 1.030 (1.005-1.035) 12/06/18 16:51 Urine Protein Trace mg/dL (<30 mg/dL) H 12/06/18 16:51 Urine Glucose (UA) Negative mg/dL (NEGATIVE) 12/06/18 16:51 Urine Ketones Negative mg/dL (NEGATIVE) 12/06/18 16:51 Urine Blood Negative (NEGATIVE) 12/06/18 16:51 Urine Nitrate Negative (NEGATIVE) 12/06/18 16:51 Urine Bilirubin Negative (NEGATIVE) 12/06/18 16:51 Urine Urobilinogen 1.0 E.U./dL (<1 E.U./dL) H 12/06/18 16:51 Ur Leukocyte Esterase Negative Vishal/uL (NEGATIVE) 12/06/18 16:51 Urine RBC 0 - 2 /hpf (0-2) 12/06/18 16:51 Urine WBC None /hpf (0-6) 12/06/18 16:51 Ur Epithelial Cells None /hpf (0-5) 12/06/18 16:51 Urine Other Mucus /hpf 12/06/18 16:51 Stool Leukocytes, Qual Negative (NEGATIVE) 12/06/18 16:00 - Hospital Course Hospital Course: 88-year-old female with past medical history of CVA, TIA, severe PVD, dementia presents following her being diarrhea, dizzy, and increasing lethargy. In the ED basic lab work were performed. Patient K was found to be 3.2 and was repleted. EKG was performed and showed heart rate of 79 sinus rhythm with f irst-degree AV block with premature supraventricular complexes, LBBB. Chest x- ray was performed and showed cardiomegaly, mild left basilar atelectasisinfiltrate. CT of the abdomen was performed that showed calcifications consistent with degenerating fibroids, bilateral adrenal gland hypertrophy, pneumobilia consistent with cholecystectomy, fatty atrophy of the pancreas, bibasilar atelectasisinfiltrate. CT of the head was performed and showed generalized atrophy. Patient had one episode of diarrhea in the ED. Patient was brought to remote telemetry for continued monitoring cardiology was consulted regarding the LBBB however recommended conservative management at this time. Patient diarrhea resolved. Neurology was consulted further recommendationscontinue current management. Aspirin was started. Today the diarrhea had fully resolved and patient is less lethargic. Physical therapy was done and recommended TCU. I spoke to patient's family including Tracy yesterday. I spoke to Taco today and he was agreeable that the patient should go to TCU for rehab and continued strengthening. They agree with the plan. All questions answered. 1. Acute diarrhea, resolved 2. Hypokalemia resolved 3. LBBB, likely chronic 4. History of CVA 5. Peripheral vascular disease 6. Dementia, likely Alzheimer's 7. Dizziness, resolved Discharge Exam - Head Exam Head Exam: ATRAUMATIC, NORMOCEPHALIC - Eye Exam Eye Exam: EOMI, PERRL Pupil Exam: NORMAL ACCOMODATION - Respiratory Exam Respiratory Exam: Clear to PA & Lateral. absent: Rales, Rhonchi, Wheezes - Cardiovascular Exam Cardiovascular Exam: REGULAR RHYTHM, +S1, +S2 - GI/Abdominal Exam GI & Abdominal Exam: Normal Bowel Sounds, Soft. absent: Distended, Tenderness - Neurological Exam Neurological exam: Alert, Oriented x3 - Psychiatric Exam Psychiatric exam: Normal Mood - Skin Skin Exam: Dry, Warm Discharge Plan - Follow Up Plan Condition: IMPROVED Disposition: REHAB FACILITY/REHAB UNIT Patient education suggested?: Yes Instructions: Diarrhea in Adolescents and Adults, Preventing Falls in the Older Adult, Rotavirus Infection (DC), Rotavirus Infection (GEN), Nutrition Tips for Relief of Diarrhea (DC), Nutrition Tips for Relief of Diarrhea (GEN) Additional Instructions: D/c to TCU Resume all inpatient medications, and consultants <Ravin Kemp - Last Filed: 12/09/18 17:21> Provider - Provider Date of Admission: 12/06/18 20:14 Attending physician: Ravin Kemp MD Consults: 12/06/18 20:21 Cardiology Consult Routine Comment: Consulting Provider: Wallace Goncalves Consulting Physician: Wallace Goncalves Reason for Consult: incidental ekg with left bundle branch block 12/07/18 02:17 Social Work Referral Routine Comment: Patient has dementia lives alone Physician Instructions: Reason For Exam: Lives alone 12/07/18 14:32 Consult [Physician Consult] Routine Comment: Consulting Provider: Montez Tobar Consulting Physician: Montez Tobar Reason for Consult: altered mental status 12/07/18 14:36 Stroke Center Referral Routine Comment: Physician Instructions: Reason For Exam: PT with possible brain bleed 12/08/18 13:56 TCU [Evaluation for TRCU] Routine Comment: Physician Instructions: Reason For Exam: deconditioned Hospital Course - Lab Results Lab Results: Micro Results 12/06/18 22:00 Blood-Venous Blood Culture - Preliminary NO GROWTH AFTER 48 HOURS 12/06/18 19:59 Blood-Venous Blood Culture - Preliminary NO GROWTH AFTER 48 HOURS 12/06/18 16:00 Stool C. difficile Antigen & Toxins A,B - Final Most Recent Lab Values WBC 4.8 10^3/uL (4.5-11.0) D 12/09/18 10:40 RBC 3.56 10^6/uL (3.5-6.1) 12/09/18 10:40 Hgb 10.7 g/dL (12.0-16.0) L 12/09/18 10:40 Hct 32.7 % (36.0-48.0) L 12/09/18 10:40 MCV 91.9 fl (80.0-105.0) 12/09/18 10:40 MCH 30.1 pg (25.0-35.0) 12/09/18 10:40 MCHC 32.7 g/dl (31.0-37.0) 12/09/18 10:40 RDW 14.0 % (11.5-14.5) 12/09/18 10:40 Plt Count 193 10^3/uL (120.0-450.0) 12/09/18 10:40 MPV 9.8 fl (7.0-11.0) 12/09/18 10:40 Neut % (Auto) 61.0 % (50.0-68.0) 12/09/18 10:40 Lymph % (Auto) 27.7 % (22.0-35.0) 12/09/18 10:40 Redwood % (Auto) 9.4 % (1.0-6.0) H 12/09/18 10:40 Eos % (Auto) 1.7 % (1.5-5.0) 12/09/18 10:40 Baso % (Auto) 0.2 % (0.0-3.0) 12/09/18 10:40 Lymph # (Auto) 1.3 (1.2-3.4) 12/09/18 10:40 Redwood # (Auto) 0.5 (0.1-0.6) 12/09/18 10:40 Eos # (Auto) 0.1 (0.0-0.7) 12/09/18 10:40 Baso # (Auto) 0.01 K/mm3 (0.0-2.0) 12/09/18 10:40 Absolute Neuts (auto) 2.91 (1.4-6.5) 12/09/18 10:40 PT 15.0 SECONDS (9.4-12.5) H 12/06/18 15:47 INR 1.35 12/06/18 15:47 pO2 34 mm/Hg (30-55) 12/06/18 17:50 VBG pH 7.41 (7.32-7.43) 12/06/18 17:50 VBG pCO2 45.0 (40-60) 12/06/18 17:50 VBG HCO3 28.5 mmol/l (21-28) H 12/06/18 17:50 VBG Total CO2 29.9 mmol.L (22-28) H 12/06/18 17:50 VBG O2 Sat (Calc) 72.0 % (40-65) H 12/06/18 17:50 VBG Base Excess 3.2 mmol/L (0.0-2.0) H 12/06/18 17:50 VBG Potassium 3.3 mmol/L (3.6-5.2) L 12/06/18 17:50 Sodium 140.0 mmol/L (132-148) 12/06/18 17:50 Chloride 108.0 mmol/L (98-107) H 12/06/18 17:50 Glucose 125 mg/dl (65-105) H 12/06/18 17:50 Lactate 1.0 mmol/L (0.7-2.1) 12/06/18 17:50 FiO2 21.0 % 12/06/18 17:50 Sodium 137 mmol/L (132-148) 12/09/18 10:40 Potassium 4.0 mmol/L (3.6-5.0) 12/09/18 10:40 Chloride 105 mmol/L (98-107) 12/09/18 10:40 Carbon Dioxide 26 mmol/L (21-33) 12/09/18 10:40 Anion Gap 9 (10-20) L 12/09/18 10:40 BUN 14 mg/dL (7-21) 12/09/18 10:40 Creatinine 0.5 mg/dl (0.7-1.2) L 12/09/18 10:40 Est GFR ( Amer) > 60 12/09/18 10:40 Est GFR (Non-Af Amer) > 60 12/09/18 10:40 Random Glucose 143 mg/dL (70-110) H 12/09/18 10:40 Hemoglobin A1c 5.6 % (4.2-6.5) 12/08/18 11:30 Calcium 8.5 mg/dL (8.4-10.5) 12/09/18 10:40 Phosphorus 3.8 mg/dL (2.5-4.5) 12/09/18 10:40 Magnesium 2.2 mg/dL (1.7-2.2) 12/09/18 10:40 Total Bilirubin 0.5 mg/dL (0.2-1.3) 12/09/18 10:40 AST 19 U/L (14-36) 12/09/18 10:40 ALT 18 U/L (7-56) 12/09/18 10:40 Alkaline Phosphatase 52 U/L (38-126) 12/09/18 10:40 Troponin I < 0.01 ng/mL 12/06/18 16:00 Total Protein 6.3 g/dL (5.8-8.3) 12/09/18 10:40 Albumin 3.4 g/dL (3.0-4.8) 12/09/18 10:40 Globulin 2.9 gm/dL 12/09/18 10:40 Albumin/Globulin Ratio 1.2 (1.1-1.8) 12/09/18 10:40 Triglycerides 108 mg/dL (35-160) 12/07/18 17:21 Cholesterol 148 mg/dL (130-200) 12/07/18 17:21 LDL Cholesterol Direct 81 mg/dL (0-129) 12/07/18 17:21 HDL Cholesterol 40 mg/dL (29-60) 12/07/18 17:21 Free T4 0.95 ng/dL (0.78-2.19) 12/08/18 11:30 TSH 3rd Generation 3.73 mIU/mL (0.46-4.68) 12/08/18 11:30 Venous Blood Potassium 3.3 mmol/L (3.6-5.2) L 12/06/18 17:50 Urine Color Yellow (YELLOW) 12/06/18 16:51 Urine Appearance Clear (CLEAR) 12/06/18 16:51 Urine pH 5.5 (4.7-8.0) 12/06/18 16:51 Ur Specific Fountain >= 1.030 (1.005-1.035) 12/06/18 16:51 Urine Protein Trace mg/dL (<30 mg/dL) H 12/06/18 16:51 Urine Glucose (UA) Negative mg/dL (NEGATIVE) 12/06/18 16:51 Urine Ketones Negative mg/dL (NEGATIVE) 12/06/18 16:51 Urine Blood Negative (NEGATIVE) 12/06/18 16:51 Urine Nitrate Negative (NEGATIVE) 12/06/18 16:51 Urine Bilirubin Negative (NEGATIVE) 12/06/18 16:51 Urine Urobilinogen 1.0 E.U./dL (<1 E.U./dL) H 12/06/18 16:51 Ur Leukocyte Esterase Negative Vishal/uL (NEGATIVE) 12/06/18 16:51 Urine RBC 0 - 2 /hpf (0-2) 12/06/18 16:51 Urine WBC None /hpf (0-6) 12/06/18 16:51 Ur Epithelial Cells None /hpf (0-5) 12/06/18 16:51 Urine Other Mucus /hpf 12/06/18 16:51 Stool Leukocytes, Qual Negative (NEGATIVE) 12/06/18 16:00 - Hospital Course Hospital Course: Pt seen and examined by me. I have reviewed the note of the medical territory manager and I agree with it. I have discussed the assessment and plan with the resident. I have reviewed the medications and the last labs.
[2018-12-09 18:48] VITALS: BP 119/74; PULSE 63; RESP 19
--- NOTE | 2018-12-10 05:17 | DS ---
HOSPITAL COURSE: The patient was seen and examined. I do agree with the note of the medical secretary teacher, I was involved in the plan of care. The patient initially came to the hospital because of acute diarrhea from gastroenteritis. This has improved. She was having hypokaliemia because of diarrhea and her potassium was replaced. She had a difficult time. 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 The patient's family was updated regarding her current care. She has been accepted to the Transitional Care Unit. She was discharged and will be followed there. She is going to continue with her aspirin. She is on Lipitor for dyslipidemia. She also had carotid Doppler studies that were done which did not show any significant abnormalities. Ravin Kemp MD
== END 2018-12-09 19:12 | DRG 392 ==
LOC: ED 15:18 → ERH 20:14 → 3RSO 12-07 00:14
PROVIDERS: ADMIT Internal Medicine; ATTEND Internal Medicine Nephrology
DX: R19.7 Diarrhea, unspecified (principal); R47.01 Aphasia; J98.11 Atelectasis; I69.321 Dysphasia following cerebral infarction; I73.9 Peripheral vascular disease, unspecified; I44.7 Left bundle-branch block, unspecified; Z87.891 Personal history of nicotine dependence; E86.9 Volume depletion, unspecified; E87.6 Hypokalemia; D25.9 Leiomyoma of uterus, unspecified; E78.5 Hyperlipidemia, unspecified; G30.9 Alzheimer's disease, unspecified; F02.80 Dementia in other diseases classified elsewhere, unspecified severity, without behavioral disturbance, psychotic disturbance, mood disturbance, and anxiety; I11.9 Hypertensive heart disease without heart failure; I44.0 Atrioventricular block, first degree; I49.1 Atrial premature depolarization; K86.89 Other specified diseases of pancreas; M43.10 Spondylolisthesis, site unspecified; Z79.82 Long term (current) use of aspirin; Z90.49 Acquired absence of other specified parts of digestive tract; Z96.653 Presence of artificial knee joint, bilateral

== ENCOUNTER 2018-12-09 19:19 | Inpatient (IN) | payer OTHER, BC, MEDICARE ==
[2018-12-09] MEDS ORDERED: guaiFENesin DM 100 mg-10 mg/5 ml UD PO PRN (19:51)
[2018-12-10 08:12] LABS: BASO # 0.01 K/mm3 (0.0-2.0); BASO % 0.2 % (0.0-3.0); EOS # 0.1 (0.0-0.7); EOS % 1.7 % (1.5-5.0); HEMOGLOBIN 11.2 g/dL (12.0-16.0); LYMPH # 1.4 (1.2-3.4); LYMPH % 29.6 % (22.0-35.0); MEAN CORPUSCULAR HEMOGLOBIN 29.6 pg (25.0-35.0); MEAN CORPUSCULAR HGB CONC 32.5 g/dl (31.0-37.0); MEAN PLATELET VOLUME 9.7 fl (7.0-11.0); MONO # 0.4 (0.1-0.6); MONO % 8.8 % (1.0-6.0); RBC 3.79 10^6/uL (3.5-6.1); WHITE BLOOD COUNT 4.8 10^3/uL (4.5-11.0)
[2018-12-10 08:22] LABS: ALB/GLOB RATIO 1.2 (1.1-1.8); ALBUMIN 3.6 g/dL (3.0-4.8); ALT/SGPT 17 U/L (7-56); AST/SGOT 21 U/L (14-36); BLOOD UREA NITROGEN 11 mg/dL (7-21); CALCIUM 8.7 mg/dL (8.4-10.5); GFR NON-AFRICAN AMERICAN > 60
--- NOTE | 2018-12-10 13:07 | CON ---
DATE: 12/10/2018 NEUROLOGY CONSULTATION CHIEF COMPLAINT: Dementia and mental status change. HISTORY OF PRESENT ILLNESS: This is an 88-year-old woman who was seen on the medical site with history of TIA, old CVA, severe PVD, Alzheimer's type dementia came to the hospital for diarrhea, light headedness, lethargy and was found to have hypokaliemia and first degree AV block with premature tachycardia complex. Chest x-ray showed cardiomegaly and mild left infiltrate. CT of the head showed no acute intracranial abnormalities or generalized atrophy. The patient had one episodes in the ER. Currently, the patient been brought TCU for rehabilitation for deconditioned state superimposed on underlying dementia. PAST MEDICAL HISTORY: As above. SOCIAL HISTORY: No illicit drug use, smoking or EtOH abuse. REVIEW OF SYSTEMS: A 14-point review of systems is negative except as per HPI. FAMILY HISTORY: Noncontributory. MEDICATIONS: Reviewed by nurse's reconciliation sheet. ALLERGIES: NO KNOWN DRUG ALLERGIES. LABORATORY DATA: Sodium is 139, potassium 4, chloride of 102, carbon dioxide of 30, BUN of 11, creatinine of 0.5, random glucose of 103. PHYSICAL EXAMINATION: GENERAL: The patient seen up in bed and in no acute distress. VITAL SIGNS: Temperature 97.7, pulse rate of 67, and blood pressure of 130/72. HEENT: Atraumatic, normocephalic. PERRLA. Extraocular muscles intact. NECK: Supple. No JVD. No adenopathy noted. LUNGS: Clear to auscultation. No adventitious sounds. HEART: S1 and S2, normal rate and rhythm. No murmurs, rubs, or gallops. ABDOMEN: Soft, nontender, and nondistended. Positive bowel sounds present. EXTREMITIES: No clubbing. No cyanosis. Peripheral pulses 2+ felt bilaterally. NEUROLOGIC: The patient is alert and oriented to person and place not much to month or year. Recall after 5 minutes 0/3. Poor attention span. Slow thought process. Cranial nerves II through XII are intact. Motor exam; moves all extremities equally. Toes are downgoing bilaterally. Sensory exam; light touch and pinprick, proprioception, and vibration are intact. DTRs are 2+ throughout and 1 in both the knees and ankles. Coordination; [id number] is intact. No dysmetria noted. Gait is deferred for now. IMPRESSION AND PLAN: Generalized leathery secondary to acute diarrhea, hypokaliemia, metabolic derangement, which is currently resolved. The patient's has improved, she is hydrated. The patient has dementia, most likely to severe cognitive impairment, therefore, we will recommend Namenda 10 mg p.o. daily for neurocognitive rehabilitation and to add thiamine 100 mg p.o. daily. In addition, we will recommend physical therapy and occupational therapy for deconditioned state, monitor electrolyte and correct accordingly and delirium precautions advised. Thank you for this consult. Montez Tobar MD
--- NOTE | 2018-12-10 15:49 | CP.PCM.HP ---
<Feliciano Engle - Last Filed: 12/10/18 15:51> History of Present Illness - History of Present Illness History of Present Illness: H&P for Dr Kemp: 88-year-old female with past medical history of CVA, TIA, severe PVD, dementia initially presented to the ED with diarrhea, dizzy, and increasing lethargy. In the ED basic lab work were performed. Patient K was found to be 3.2 and was repleted. EKG was performed and showed heart rate of 79 sinus rhythm with first-degree AV block with premature supraventricular complexes, LBBB. Chest x- ray was performed and showed cardiomegaly, mild left basilar atelectasisinfiltrate. CT of the abdomen was performed that showed calcifications consistent with degenerating fibroids, bilateral adrenal gland hypertrophy, pneumobilia consistent with cholecystectomy, fatty atrophy of the pancreas, bibasilar atelectasisinfiltrate. CT of the head was performed and showed generalized atrophy. Patient had one episode of diarrhea in the ED. Patient was brought to remote telemetry for continued monitoring cardiology was consulted regarding the LBBB however recommended conservative management at this time. Patient diarrhea resolved. Neurology was consulted further recommendationscontinue current management. Aspirin was started. Today the staci rrhea had fully resolved and patient is less lethargic. Physical therapy was done and recommended TCU. She was transferred to the TCU for deconditioning and for rehab. Today the patient has no complaints at this time. She denies any further episodes of diarrhea and dizziness. She states that her symptoms have all resolved. 12 point ROS limited 2/2 dementia PMH: As above PSH: Cholecystectomy, bilateral knee replacement, ankle surgery, , varicose vein removal Allergies: No known allergies Medications: Denies SH: Denies any smoking, drinking, or drugs FH: Denies Present on Admission - Present on Admission Any Indicators Present on Admission: No Review of Systems - Review of Systems Systems not reviewed;Unavailable: Dementia All systems: reviewed and no additional remarkable complaints except Past Patient History - Past Social History Smoking Status: Former Smoker - CARDIAC Hx Hypercholesterolemia: Yes Hx Hypertension: Yes - NEUROLOGICAL HX Cerebrovascular Accident: Yes - MUSCULOSKELETAL/RHEUMATOLOGICAL Hx Falls: No - GENITOURINARY/GYNECOLOGICAL Hx Reproductive Disorders: No - PSYCHIATRIC Hx Substance Use: No - SURGICAL HISTORY Hx Joint Replacement: Yes (Knee replacement) Meds Allergies/Adverse Reactions: Allergies Allergy/AdvReac Type Severity Reaction Status Date / Time No Known Allergies Allergy Verified 12/06/18 15:26 Physical Exam - Head Exam Head Exam: ATRAUMATIC, NORMOCEPHALIC - Eye Exam Eye Exam: EOMI - ENT Exam ENT Exam: Mucous Membranes Moist - Respiratory Exam Respiratory Exam: Clear to Auscultation Bilateral. absent: Rales, Wheezes - Cardiovascular Exam Cardiovascular Exam: REGULAR RHYTHM, +S1, +S2 - GI/Abdominal Exam GI & Abdominal Exam: Normal Bowel Sounds, Soft. absent: Tenderness - Extremities Exam Extremities exam: Negative for: calf tenderness, pedal edema - Neurological Exam Neurological exam: Alert, CN II-XII Intact, Oriented x3 - Psychiatric Exam Psychiatric exam: Normal Mood - Skin Skin Exam: Dry, Warm Results - Vital Signs Recent Vital Signs: Last Vital Signs Temp 97.9 F 12/10/18 10:00 Pulse 69 12/10/18 10:00 Resp 14 12/10/18 10:00 BP 98/59 L 12/10/18 10:00 Pulse Ox 97 12/10/18 10:00 - Labs Result Diagrams: 12/10/18 08:00 12/10/18 08:00 Labs: Laboratory Results - last 24 hr 12/10/18 12/10/18 08:00 08:00 WBC 4.8 RBC 3.79 Hgb 11.2 L Hct 34.5 L MCV 91.0 MCH 29.6 MCHC 32.5 RDW 14.0 Plt Count 214 MPV 9.7 Neut % (Auto) 59.7 Lymph % (Auto) 29.6 [place] % (Auto) 8.8 H Eos % (Auto) 1.7 Baso % (Auto) 0.2 Lymph # (Auto) 1.4 [place] # (Auto) 0.4 Eos # (Auto) 0.1 Baso # (Auto) 0.01 Absolute Neuts (auto) 2.87 Sodium 139 Potassium 4.0 Chloride 102 Carbon Dioxide 30 Anion Gap 11 BUN 11 Creatinine 0.5 L Est GFR ( Amer) > 60 Est GFR (Non-Af Amer) > 60 Random Glucose 103 Calcium 8.7 Phosphorus 4.0 Magnesium 2.4 H Total Bilirubin 0.4 AST 21 ALT 17 Alkaline Phosphatase 61 Total Protein 6.5 Albumin 3.6 Globulin 3.0 Albumin/Globulin Ratio 1.2 Assessment & Plan - Assessment and Plan (Free Text) Assessment: 1. Acute diarrhea 2/2 gastroenteritis, resolved 2. Hypokalemia, resolved 3. LBBB, likely chronic 4. History of CVA 5. Peripheral vascular disease 6. Dementia, likely Alzheimer's 7. Dizziness, resolved Patient's diarrhea and dizziness has mostly resolved. Stool work up has been neg. Cardiology has been consulted and recommended conservative management for her LBBB. Her hypokalemia has resolved, continue to follow. For her dizziness and history of dementia neurology was consulted awaiting recommendations. For her history of CVA cont aspirin daily. For her hyperlipidemia continue with Lipitor. CT of the head was neg for any acute abnormality. I spoke to the patient's children - Yobany and Tracy in detail regarding her management. Cont with heart healthy diet. Continue with physical therapy in the TCU. Continue to monitor for any changes. Case and plan was reviewed and discussed with Dr. Kemp. <Ravin Kemp S - Last Filed: 12/10/18 19:41> Results - Vital Signs Recent Vital Signs: Last Vital Signs Temp 97.9 F 12/10/18 10:00 Pulse 69 12/10/18 10:00 Resp 14 12/10/18 10:00 BP 98/59 L 12/10/18 10:00 Pulse Ox 97 12/10/18 10:00 - Labs Result Diagrams: 12/10/18 08:00 12/10/18 08:00 Labs: Laboratory Results - last 24 hr 12/10/18 12/10/18 08:00 08:00 WBC 4.8 RBC 3.79 Hgb 11.2 L Hct 34.5 L MCV 91.0 MCH 29.6 MCHC 32.5 RDW 14.0 Plt Count 214 MPV 9.7 Neut % (Auto) 59.7 Lymph % (Auto) 29.6 [place] % (Auto) 8.8 H Eos % (Auto) 1.7 Baso % (Auto) 0.2 Lymph # (Auto) 1.4 [place] # (Auto) 0.4 Eos # (Auto) 0.1 Baso # (Auto) 0.01 Absolute Neuts (auto) 2.87 Sodium 139 Potassium 4.0 Chloride 102 Carbon Dioxide 30 Anion Gap 11 BUN 11 Creatinine 0.5 L Est GFR ( Amer) > 60 Est GFR (Non-Af Amer) > 60 Random Glucose 103 Calcium 8.7 Phosphorus 4.0 Magnesium 2.4 H Total Bilirubin 0.4 AST 21 ALT 17 Alkaline Phosphatase 61 Total Protein 6.5 Albumin 3.6 Globulin 3.0 Albumin/Globulin Ratio 1.2 Assessment & Plan - Assessment and Plan (Free Text) Assessment: Pt seen and examined by me. I have reviewed the note of the medical assisting instructor and I agree with it. I have discussed the assessment and plan with the resident. I have reviewed the medications and the last labs.
--- NOTE | 2018-12-11 00:06 | HP ---
DATE OF EXAM: 12/10/2018 HISTORY OF PRESENT ILLNESS: The patient was seen and examined. I do agree with the note of medical assembler. Patient was initially admitted to the hospital because of acute gastroenteritis and was having diarrhea. I did review the notes of hospitalization. Patient had hypokalemia and her potassium was replaced. She has peripheral arterial disease. She has history of dementia most likely Alzheimer's type. She has been transferred to the Transitional Care Unit for rehab. The patient currently is comfortable. She has no complaints. She is going to continue with her Lipitor for dyslipidemia and she is on aspirin daily. She will receive a cough medication. She is on heart-healthy diet. Ravin Kemp MD
--- NOTE | 2018-12-11 09:31 | CP.PCM.PN ---
<Feliciaon Engle - Last Filed: 12/11/18 09:31> Subjective - Date & Time of Evaluation Date of Evaluation: 12/11/18 Time of Evaluation: 07:20 - Subjective Subjective: Medicine progress note: Patient seen and examined at bedside. No acute events overnight. Patient states that she did not sleep well and is tired. No other complaints at this time. 12 point ROS performed and negative other than stated above Objective - Vital Signs/Intake and Output Vital Signs (last 24 hours): Temp Pulse Resp BP Pulse Ox 97.9 F 69 14 98/59 L 97 12/10/18 10:00 12/10/18 10:00 12/10/18 10:00 12/10/18 10:00 12/10/18 10:00 Intake and Output: 12/11/18 12/11/18 06:59 18:59 Intake Total 240 Balance 240 - Medications Medications: Current Medications Aspirin (Aspirin Chewable) 81 mg PO 0800 KENNEDY; Protocol Last Admin: 12/11/18 08:16 Dose: 81 mg Atorvastatin Calcium (Lipitor) 20 mg PO DIN KENNEDY; Protocol Last Admin: 12/10/18 17:34 Dose: 20 mg Guaifenesin/Dextromethorphan (Robitussin Dm) 5 ml PO Q4H PRN; Protocol PRN Reason: Cough - Labs Labs: 12/10/18 08:00 12/10/18 08:00 - Constitutional Appears: No Acute Distress - Head Exam Head Exam: ATRAUMATIC, NORMOCEPHALIC - Eye Exam Eye Exam: EOMI - ENT Exam ENT Exam: Mucous Membranes Moist - Respiratory Exam Respiratory Exam: Clear to Ausculation Bilateral. absent: Rales, Rhonchi, Wheezes - Cardiovascular Exam Cardiovascular Exam: REGULAR RHYTHM, RRR, +S1, +S2 - GI/Abdominal Exam GI & Abdominal Exam: Soft. absent: Distended, Tenderness - Extremities Exam Extremities Exam: absent: Calf Tenderness, Pedal Edema - Neurological Exam Neurological Exam: Alert, Awake, Oriented x3 - Psychiatric Exam Psychiatric exam: Normal Mood - Skin Skin Exam: Dry, Warm Assessment and Plan - Assessment and Plan (Free Text) Assessment: 1. Acute diarrhea 2/2 gastroenteritis, resolved 2. Hypokalemia, resolved 3. LBBB, likely chronic 4. History of CVA 5. Peripheral vascular disease 6. Dementia, likely Alzheimer's 7. Dizziness, resolved 8 Insomina Continue with physical therapy in the TCU. Patient's diarrhea and dizziness has resolved. Stool work up has been neg. Cardiology has been consulted and recomme nded conservative management for her LBBB. Her hypokalemia has resolved, continue to monitor. For her dizziness and history of dementia neurology was consulted awaiting recommendations. For her history of CVA cont aspirin daily. For her hyperlipidemia continue with Lipitor. I started Xanax 0.5 HS for insomnia. Cont with heart healthy diet. Continue with physical therapy in the TCU. Continue to monitor for any changes. Case and plan was reviewed and discussed with Dr. Kemp. <Ravin Kemp S - Last Filed: 12/11/18 21:17> Objective - Vital Signs/Intake and Output Vital Signs (last 24 hours): Temp Pulse Resp BP Pulse Ox 98 F 72 16 103/56 L 92 L 12/11/18 10:00 12/11/18 10:00 12/11/18 10:00 12/11/18 10:00 12/11/18 10:00 - Medications Medications: Current Medications Alprazolam (Xanax) 0.5 mg PO HS KENNEDY; Protocol Last Admin: 12/11/18 21:02 Dose: 0.5 mg Aspirin (Aspirin Chewable) 81 mg PO 0800 KENNEDY; Protocol Last Admin: 12/11/18 08:16 Dose: 81 mg Atorvastatin Calcium (Lipitor) 20 mg PO DIN KENNEDY; Protocol Last Admin: 12/11/18 17:10 Dose: 20 mg Guaifenesin/Dextromethorphan (Robitussin Dm) 5 ml PO Q4H PRN; Protocol PRN Reason: Cough - Labs Labs: 12/10/18 08:00 12/10/18 08:00 Assessment and Plan - Assessment and Plan (Free Text) Assessment: Pt seen and examined by me. I have reviewed the note of the medical staff assistant and I agree with it. I have discussed the assessment and plan with the resident. I have reviewed the medications and the last labs.
--- NOTE | 2018-12-12 01:56 | PN ---
DATE: 12/11/2018 The patient was seen and examined. I do agree with the note of the medical associate. I was involved in the plan of care. The patient had gastroenteritis that has improved. Her diarrhea has improved. She does get episodes of confusion. She does have dementia, Alzheimer's type. She has a difficult time with sleeping. The patient was placed on Xanax in the evening, so she can sleep better, otherwise I feel that she may have more delirium episodes. She is getting physical therapy. Ravin Kemp MD
--- NOTE | 2018-12-12 09:51 | CP.PCM.PN ---
<Feliciano Engle - Last Filed: 12/12/18 09:51> Subjective - Date & Time of Evaluation Date of Evaluation: 12/12/18 Time of Evaluation: 07:00 - Subjective Subjective: Medicine progress note: Patient seen and examined at bedside. No acute events overnight. She states that she is doing well with PT. Slept better last night. No complaints. 12 point ROS performed and negative other than stated above Objective - Vital Signs/Intake and Output Vital Signs (last 24 hours): Temp Pulse Resp BP Pulse Ox 98 F 72 16 103/56 L 92 L 12/11/18 10:00 12/11/18 10:00 12/11/18 10:00 12/11/18 10:00 12/11/18 10:00 - Medications Medications: Current Medications Alprazolam (Xanax) 0.5 mg PO HS KENNEDY; Protocol Last Admin: 12/11/18 21:02 Dose: 0.5 mg Aspirin (Aspirin Chewable) 81 mg PO 0800 KENNEDY; Protocol Last Admin: 12/12/18 08:12 Dose: 81 mg Atorvastatin Calcium (Lipitor) 20 mg PO DIN KENNEDY; Protocol Last Admin: 12/11/18 17:10 Dose: 20 mg Guaifenesin/Dextromethorphan (Robitussin Dm) 5 ml PO Q4H PRN; Protocol PRN Reason: Cough - Labs Labs: 12/10/18 08:00 12/10/18 08:00 - Constitutional Appears: No Acute Distress - Head Exam Head Exam: ATRAUMATIC, NORMOCEPHALIC - Eye Exam Eye Exam: EOMI - ENT Exam ENT Exam: Mucous Membranes Moist - Respiratory Exam Respiratory Exam: Clear to Ausculation Bilateral. absent: Rales, Wheezes - Cardiovascular Exam Cardiovascular Exam: REGULAR RHYTHM, RRR, +S1, +S2 - GI/Abdominal Exam GI & Abdominal Exam: Soft. absent: Distended, Tenderness - Extremities Exam Extremities Exam: absent: Calf Tenderness, Pedal Edema - Neurological Exam Neurological Exam: Alert, Awake, Oriented x3 - Psychiatric Exam Psychiatric exam: Normal Mood - Skin Skin Exam: Dry, Warm Assessment and Plan - Assessment and Plan (Free Text) Assessment: 1. Gastroenteritis, resolved 2. Hypokalemia, resolved 3. LBBB, likely chronic 4. History of CVA 5. Peripheral vascular disease 6. Dementia, likely Alzheimer's 7. Dizziness, resolved 8 Insomina Continue with physical therapy in the TCU. Patient's diarrhea and dizziness has resolved. Cardiology has been consulted and recommended conservative management for her LBBB. Hypokalemia has resolved, continue to monitor. For her dizziness and history of dementia neurology was consulted awaiting recommendations. For her history of CVA cont aspirin daily. For her hyperlipidemia continue with Lipitor. Cont Xanax 0.5 HS for insomnia. Heart healthy diet. Continue to monitor. Case and plan was reviewed and discussed with Dr. Kemp. <Ravin Kemp S - Last Filed: 12/12/18 16:12> Objective - Vital Signs/Intake and Output Vital Signs (last 24 hours): Temp Pulse Resp BP Pulse Ox 98 F 97 H 20 96/58 L 95 12/12/18 10:00 12/12/18 10:00 12/12/18 10:00 12/12/18 10:00 12/12/18 10:00 - Medications Medications: Current Medications Alprazolam (Xanax) 0.5 mg PO HS KENNEDY; Protocol Last Admin: 12/11/18 21:02 Dose: 0.5 mg Aspirin (Aspirin Chewable) 81 mg PO 0800 KENNEDY; Protocol Last Admin: 12/12/18 08:12 Dose: 81 mg Atorvastatin Calcium (Lipitor) 20 mg PO DIN KENNEDY; Protocol Last Admin: 12/11/18 17:10 Dose: 20 mg Guaifenesin/Dextromethorphan (Robitussin Dm) 5 ml PO Q4H PRN; Protocol PRN Reason: Cough - Labs Labs: 12/10/18 08:00 12/10/18 08:00 Assessment and Plan - Assessment and Plan (Free Text) Assessment: Pt seen and examined by me. I have reviewed the note of the center medical director and I agree with it. I have discussed the assessment and plan with the resident. I have reviewed the medications and the last labs.
[2018-12-12 13:57] VITALS: O2SAT 95
--- NOTE | 2018-12-12 20:20 | PN ---
DATE: 12/12/2018 SUBJECTIVE: Patient was seen and examined. I do agree with the note of the medical radiation dosimetrist. I was involved in the plan of care. The patient was able to sleep better last night. She did have delirium at times. She has history of dementia, Alzheimer's type. She is getting physical therapy. She is improving with physical therapy. Patient's family was advised by the elementary school social worker that she is due to be discharged in 2 days. They were advised to seek a sister for any needs at home. Ravin Kemp MD
[2018-12-13 16:34] VITALS: BP 100/60; PULSE 66; RESP 14; TEMP 98.6
--- NOTE | 2018-12-15 01:13 | DS ---
HOSPITAL COURSE: This is an 88-year-old female who was brought in from the Transitional Care Unit for rehab. She has been improving with the physical therapy. She does have underlying dementia. She has been eating and sleeping better. The patient is going to be discharged home today. PHYSICAL EXAMINATION: VITAL SIGNS: Temperature is 98.6, pulse is 66, blood pressure is 100/60, and respirations 14. GENERAL: The patient is lying in bed, flat, comfortable. HEENT: No oral lesion. Anicteric sclerae. Moist mucosa. NECK: No JVD, adenopathy, or thyromegaly. CARDIOVASCULAR: S1 and S2, regular. No murmurs, rubs, or gallops. LUNGS: Clear to auscultation bilaterally. No wheeze, rales, or rhonchi. ABDOMEN: Bowel sounds are positive, soft, nontender and nondistended. EXTREMITIES: No cyanosis, clubbing, or edema. ASSESSMENT: 1. Gastroenteritis, resolved. 2. Hypokalemia, improved. 3. Peripheral arterial disease. 4. Dementia of Alzheimer's type. 5. Insomnia. DISCHARGE PLAN: The patient is currently comfortable. She is going to be discharged home today. She is going to follow up with her primary care doctor. CONDITION: Stable. ACTIVITIES: Increase as tolerated. Ravin Kemp MD
== END 2018-12-14 15:22 | disposition home or self-care (01) | DRG 392 ==
LOC: TRCU 19:19
PROVIDERS: ADMIT Internal Medicine Nephrology; ATTEND Internal Medicine Nephrology
PROC: F07Z9FZ Gait Training/Functional Ambulation Treatment using Assistive, Adaptive, Supportive or Protective Equipment (ICD-10-PCS; principal; 2018-12-10)
PROC: F07M6ZZ Therapeutic Exercise Treatment of Musculoskeletal System - Whole Body (ICD-10-PCS; 2018-12-10)
DX: K52.9 Noninfective gastroenteritis and colitis, unspecified (principal); E87.6 Hypokalemia; I73.9 Peripheral vascular disease, unspecified; G30.9 Alzheimer's disease, unspecified; F02.80 Dementia in other diseases classified elsewhere, unspecified severity, without behavioral disturbance, psychotic disturbance, mood disturbance, and anxiety; G47.00 Insomnia, unspecified; D25.9 Leiomyoma of uterus, unspecified; E78.00 Pure hypercholesterolemia, unspecified; E78.5 Hyperlipidemia, unspecified; I11.9 Hypertensive heart disease without heart failure; I44.0 Atrioventricular block, first degree; I44.7 Left bundle-branch block, unspecified; I49.1 Atrial premature depolarization; I51.7 Cardiomegaly; K86.89 Other specified diseases of pancreas; Z79.82 Long term (current) use of aspirin; Z86.73 Personal history of transient ischemic attack (TIA), and cerebral infarction without residual deficits; Z87.891 Personal history of nicotine dependence; Z96.653 Presence of artificial knee joint, bilateral

== ENCOUNTER 2019-01-02 11:28 | Outpatient (CLI) | payer MEDICARE, BC | END 2019-01-02 11:29 | disposition home or self-care (01) | LOC: RAD 11:28 ==

== ENCOUNTER 2019-03-04 15:18 | Outpatient (CLI) | payer MEDICARE, BC | END 2019-03-04 15:19 | disposition home or self-care (01) | LOC: RAD 15:18 ==